=== PATIENT | male | born 1950 | race Caucasian/White ===

== ENCOUNTER 2022-12-17 06:26 | Emergency (ER) | payer OTHER ==
[~2022-12-17] VITALS: Ht 182.9 cm; Wt 86.2 kg
[2022-12-17 06:42] VITALS: BP_SYST 173
[2022-12-17] MEDS ORDERED: TETRACAINE HCL/PF 0.5% OPHTHALMIC DROPS 4 ML OP ONE (06:45)
[2022-12-17] MEDS ORDERED: ERYTHROMYCIN BASE 0.5% EYE OINT...G. ONE (06:50)
[2022-12-17] MEDS ORDERED: FLOEARD LEFT EYE (06:55)
[2022-12-17 07:20] VITALS: BP_SYST 173
== END 2022-12-17 07:18 | disposition home or self-care (01) ==
LOC: SED 06:26
DX: S05.02XA Injury of conjunctiva and corneal abrasion without foreign body, left eye, initial encounter (principal); E11.9 Type 2 diabetes mellitus without complications; Z79.899 Other long term (current) drug therapy; X58.XXXA Exposure to other specified factors, initial encounter; Y93.89 Activity, other specified; Y92.89 Other specified places as the place of occurrence of the external cause; Y99.8 Other external cause status
CPT/HCPCS: 99283